=== PATIENT | female | born 2000 | race African-American/Black ===

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

== ENCOUNTER 2022-01-20 08:00 | Inpatient (IN) | payer OTHER ==
[2022-01-20] MEDS: ELECTROLYTE-148 SOLN 1,000 ML IV SCH ×2 (08:35→09:58)
[2022-01-20] MEDS ORDERED: CITRIC ACID/SODIUM CITRATE 30 ML UNIT-DOSE CUP PO ONE (08:51)
[2022-01-20] MEDS ORDERED: ELECTROLYTE-148 SOLN 1,000 ML IV SCH (09:00)
[2022-01-20 09:25] VITALS: BMI 39.4
[2022-01-20] MEDS ORDERED: morphine SULFATE/PF 1 MG/2 ML (2cc Syringe - QUVA) ONE (10:19)
[2022-01-20] MEDS ORDERED: ePHEDrine SULFATE 50 MG/1 ML AMPULE ONE (10:28)
[2022-01-20] MEDS ORDERED: SENNOSIDES/DOCUSATE COMBO (SENNA PLUS) TABLET (UD) PO PRN (11:08)
[2022-01-20] MEDS ORDERED: ACETAMINOPHEN 325 MG TABLET (FP) PO PRN (11:08)
[2022-01-20] MEDS ORDERED: IBUPROFEN 800 MG/8 ML IJ IVPB PRN (11:08)
[2022-01-20] MEDS ORDERED: METHYLERGONOVINE MALEATE 0.2 MG/1 ML AMP IM PRN (11:08)
[2022-01-20] MEDS ORDERED: OXYTOCIN 20 UNITS in 0.9% NS 20 UNIT/1,000 ML INFUS.BAG IV SCH (11:15)
[2022-01-20] MEDS: SIMETHICONE 80 MG TAB.CHEW (FP) PO PRN (22:02)
[2022-01-20] MEDS: FERROUS SO4 325 MG TABLET (FP) PO SCH (22:02)
[2022-01-20] MEDS ORDERED: oxyCODONE HCL 5 MG TABLET PO PRN (23:08)
[2022-01-21 08:05] LABS: BASO % 0.2 % (0-2.0); HEMATOCRIT 30.4 % (32.4-45.2); HEMOGLOBIN 10.4 GM/dL (10.7-15.3); LYMPH % 25.2 % (8-40); MCHC 34.3 g/dl (32.0-36.0); MEAN CELL VOLUME 84.6 fl (80-96); MEAN PLT VOLUME 8.7 fl (7.5-11.1); NEUT % 67.6 % (42.8-82.8); PLATELET COUNT 244 10^3/uL (134-434); RBC 3.59 M/mm3 (3.60-5.2); WHITE BLOOD COUNT 10.8 K/mm3 (4.0-10.0)
[2022-01-21] MEDS: FERROUS SO4 325 MG TABLET (FP) PO SCH ×2 (10:45→21:07)
[2022-01-21] MEDS: PRENATAL VITAMINS W/ FOLIC ACID TABLET (FP) PO SCH (10:45)
[2022-01-21] MEDS ORDERED: BISACODYL 10 MG SUPP.RECT RC PRN (11:08)
[2022-01-21] MEDS: SIMETHICONE 80 MG TAB.CHEW (FP) PO PRN ×2 (16:07→21:07)
[2022-01-21] MEDS: IBUPROFEN 600 MG TABLET (FP) PO PRN (21:07)
[2022-01-22] MEDS: IBUPROFEN 600 MG TABLET (FP) PO PRN ×3 (05:56→21:03)
[2022-01-22] MEDS: SIMETHICONE 80 MG TAB.CHEW (FP) PO PRN ×2 (05:56→21:03)
[2022-01-22] MEDS: FERROUS SO4 325 MG TABLET (FP) PO SCH ×2 (10:05→21:03)
[2022-01-22] MEDS: PRENATAL VITAMINS W/ FOLIC ACID TABLET (FP) PO SCH (10:05)
[2022-01-23] MEDS: IBUPROFEN 600 MG TABLET (FP) PO PRN (05:42)
[2022-01-23] MEDS: SIMETHICONE 80 MG TAB.CHEW (FP) PO PRN (05:42)
[2022-01-23] MEDS: FERROUS SO4 325 MG TABLET (FP) PO SCH (09:50)
[2022-01-23] MEDS: PRENATAL VITAMINS W/ FOLIC ACID TABLET (FP) PO SCH (09:50)
[2022-01-23 10:06] LABS: BASO % 0.2 % (0-2.0); EOS % 3.3 % (0-4.5); HEMATOCRIT 30.3 % (32.4-45.2); LYMPH % 16.4 % (8-40); MCH 28.5 pg (25.7-33.7); MCHC 33.1 g/dl (32.0-36.0); MEAN PLT VOLUME 8.6 fl (7.5-11.1); MONO % 3.5 % (3.8-10.2); NEUT % 76.6 % (42.8-82.8); PLATELET COUNT 251 10^3/uL (134-434); RBC 3.52 M/mm3 (3.60-5.2); RDW 14.5 % (11.6-15.6); WHITE BLOOD COUNT 12.4 K/mm3 (4.0-10.0)
[2022-01-23 11:23] VITALS: BP 129/67; PULSE 91; RESP 18; TEMP 97.8
== END 2022-01-23 13:05 | disposition home or self-care (01) | DRG 540 ==
LOC: JLDR 08:00 → J3W 13:30
PROVIDERS: ADMIT Obstetrics & Gynecology; ATTEND Obstetrics & Gynecology
PROC: 10D00Z1 Extraction of Products of Conception, Low, Open Approach (ICD-10-PCS; principal; 2022-01-20)
DX: O34.219 Maternal care for unspecified type scar from previous cesarean delivery (principal); Z3A.39 39 weeks gestation of pregnancy; Z37.0 Single live birth; U07.1 COVID-19
CPT/HCPCS: 36415; 85025; 88307-TC

== ENCOUNTER 2024-03-15 04:29 | Emergency (ER) | payer OTHER ==
[2024-03-15 04:33] VITALS: BMI 36.1
[2024-03-15] MEDS ORDERED: morphine SULFATE 4 MG/ML VIAL ONE (05:28)
[2024-03-15] MEDS: morphine SULFATE 4 MG/ML VIAL IVPUSH ONE (05:36)
[2024-03-15 06:01] LABS: POTASSIUM 3.4 mmol/L (3.5-5.1)
[2024-03-15 06:05] LABS: ALBUMIN 3.3 g/dl (3.4-5.0); BLOOD UREA NITROGEN 9.2 mg/dL (7-18)
[2024-03-15 06:07] LABS: CREATININE 0.8 mg/dL (0.55-1.3)
[2024-03-15 06:08] LABS: BILIRUBIN,TOTAL 0.4 mg/dL (0.2-1); TOT PROT 7.1 g/dl (6.4-8.2)
[2024-03-15 06:37] LABS: BASO % 0.2 % (0-2.0); EOS % 0.2 % (0-4.5); HEMOGLOBIN 7.8 GM/dL (10.7-15.3); MCH 22.9 pg (25.7-33.7); MCHC 32.3 g/dl (32.0-36.0); MEAN PLT VOLUME 8.1 fl (7.5-11.1); MONO % 3.1 % (3.8-10.2); NEUT % 84.5 % (42.8-82.8); PLATELET COUNT 421 10^3/uL (134-434); RBC 3.39 M/mm3 (3.60-5.2); RDW 17.8 % (11.6-15.6); WHITE BLOOD COUNT 18.3 K/mm3 (4.0-10.0)
[2024-03-15 08:47] LABS: BASO % 0.3 % (0-2.0); HEMATOCRIT 22.6 % (32.4-45.2); HEMOGLOBIN 7.2 GM/dL (10.7-15.3); LYMPH % 8.8 % (8-40); MCH 22.8 pg (25.7-33.7); MCHC 31.9 g/dl (32.0-36.0); MEAN CELL VOLUME 71.6 fl (80-96); MEAN PLT VOLUME 8.4 fl (7.5-11.1); MONO % 2.2 % (3.8-10.2); NEUT % 88.7 % (42.8-82.8); PLATELET COUNT 405 10^3/uL (134-434); RBC 3.15 M/mm3 (3.60-5.2); RDW 17.9 % (11.6-15.6); WHITE BLOOD COUNT 17.6 K/mm3 (4.0-10.0)
[2024-03-15] MEDS ORDERED: MISOPROSTOL 200 MCG TABLET NR ONE (09:50)
[2024-03-15] MEDS ORDERED: MORPHINE SULFATE 2 MG/ML SYRINGE ONE (10:30)
[2024-03-15] MEDS: morphine CARPU-JECT 2 MG/1 ML DISP.SYRIN IVPUSH ONE (10:36)
[2024-03-15] MEDS: MISOPROSTOL 200 MCG TABLET NR ONE (10:37)
[2024-03-15] MEDS ORDERED: ACETAMINOPHEN INJECTION 100 ML ONE (11:36)
[2024-03-15] MEDS: ACETAMINOPHEN 1000 MG/100 ML BAG IVPB ONE (11:49)
[2024-03-15] MEDS: METHYLERGONOVINE MALEATE 0.2 MG/1 ML AMP IM ONE (13:57)
[2024-03-15] MEDS ORDERED: ONDANSETRON 4 MG/2 ML VIAL ONE (14:02)
[2024-03-15] MEDS: ONDANSETRON 4 MG/2 ML VIAL IVPUSH ONE (14:04)
[2024-03-15 14:16] LABS: BASO % 0.3 % (0-2.0); EOS % 0.1 % (0-4.5); HEMATOCRIT 24.7 % (32.4-45.2); LYMPH % 16.9 % (8-40); MCH 24.8 pg (25.7-33.7); MCHC 32.3 g/dl (32.0-36.0); MEAN CELL VOLUME 76.9 fl (80-96); MEAN PLT VOLUME 8.1 fl (7.5-11.1); MONO % 3.9 % (3.8-10.2); NEUT % 78.8 % (42.8-82.8); PLATELET COUNT 374 10^3/uL (134-434); RBC 3.21 M/mm3 (3.60-5.2); RDW 21.3 % (11.6-15.6); WHITE BLOOD COUNT 17.5 K/mm3 (4.0-10.0)
[2024-03-15 15:24] LABS: ANISOCYTOSIS 3+; MACROCYTOSIS 0; OVALOCYTE 1+
[2024-03-15 15:59] VITALS: RESP 17; TEMP 97.7
[2024-03-15 16:18] VITALS: BP 124/83; PULSE 110
== END 2024-03-15 17:04 | disposition home or self-care (01) ==
LOC: JER 04:29
PROC: 3E033NZ Introduction of Analgesics, Hypnotics, Sedatives into Peripheral Vein, Percutaneous Approach (ICD-10-PCS; principal; 2024-03-15)
PROC: 3E033NZ Introduction of Analgesics, Hypnotics, Sedatives into Peripheral Vein, Percutaneous Approach (ICD-10-PCS; 2024-03-15)
PROC: 3E033NZ Introduction of Analgesics, Hypnotics, Sedatives into Peripheral Vein, Percutaneous Approach (ICD-10-PCS; 2024-03-15)
PROC: 3E033GC Introduction of Other Therapeutic Substance into Peripheral Vein, Percutaneous Approach (ICD-10-PCS; 2024-03-15)
PROC: 3E023GC Introduction of Other Therapeutic Substance into Muscle, Percutaneous Approach (ICD-10-PCS; 2024-03-15)
DX: O03.9 Complete or unspecified spontaneous abortion without complication (principal)
CPT/HCPCS: 36415; 36430; 76817-TC; 76830-TC; 80053; 84702; 85025; 86850; 86900; 86901; 86922; 88305-TC; 96372; 96374; 96375; 96376; 99284-25; J0131; P9058

== ENCOUNTER 2024-07-03 20:55 | Observation (INO) | payer OTHER ==
[2024-07-03 21:12] VITALS: RESP 18; BMI 33.9
[2024-07-03] MEDS: ACETAMINOPHEN 500 MG TABLET (FP) PO ONE (22:30)
[2024-07-03] MEDS ORDERED: ACETAMINOPHEN 500 MG TABLET (FP) ONE (22:38)
[2024-07-03] MEDS ORDERED: ACETAMINOPHEN INJECTION 100 ML ONE (23:17)
[2024-07-03 23:30] LABS: BASO % 0.5 % (0-2.0); EOS % 0.5 % (0-4.5); HEMATOCRIT 22.4 % (32.4-45.2); MCHC 28.4 g/dl (32.0-36.0); MEAN CELL VOLUME 58.9 fl (80-96); MEAN PLT VOLUME 8.2 fl (7.5-11.1); MONO % 8.1 % (3.8-10.2); NEUT % 62.9 % (42.8-82.8); PLATELET COUNT 460 10^3/uL (134-434); RDW 21.6 % (11.6-15.6); WHITE BLOOD COUNT 8.1 K/mm3 (4.0-10.0)
[2024-07-03 23:31] LABS: MCH 16.7 pg (25.7-33.7)
[2024-07-03 23:32] LABS: HEMOGLOBIN 6.4 GM/dL (10.7-15.3)
[2024-07-03] MEDS: ACETAMINOPHEN 1000 MG/100 ML BAG IVPB ONE (23:45)
[2024-07-03 23:56] LABS: ANISOCYTOSIS 2+; MACROCYTOSIS 0; OVALOCYTE 1+; TARGET CELLS 1+
[2024-07-04] MEDS ORDERED: MORPHINE SULFATE 2 MG/ML SYRINGE ONE ×2 (00:13→05:31)
[2024-07-04 00:30] LABS: HIV INTERPRETATION NEGATIVE (NEGATIVE)
[2024-07-04] MEDS: morphine SULFATE 4 MG/ML VIAL IVPUSH ONE (00:42)
[2024-07-04] MEDS ORDERED: ONDANSETRON 4 MG/2 ML VIAL ONE ×2 (00:45→05:31)
[2024-07-04] MEDS: ONDANSETRON 4 MG/2 ML VIAL IVPUSH ONE (00:49)
[2024-07-04] MEDS ORDERED: IBUPROFEN 600 MG TABLET (FP) PO PRN (04:08)
[2024-07-04] MEDS ORDERED: ONDANSETRON 4 MG/2 ML VIAL IVPUSH PRN (04:08)
[2024-07-04] MEDS: ONDANSETRON 4 MG/2 ML VIAL IVPUSH PRN (05:42)
[2024-07-04] MEDS: MORPHINE SULFATE 2 MG/ML SYRINGE IVPUSH PRN (05:42)
[2024-07-04] MEDS: KETOROLAC TROMETHAMINE 30 MG/1 ML VIAL IVPUSH ONE (05:59)
[2024-07-04 06:31] LABS: HEMATOCRIT 20.3 % (32.4-45.2); HEMOGLOBIN 5.8 GM/dL (10.7-15.3); MCHC 28.4 g/dl (32.0-36.0); MEAN CELL VOLUME 59.9 fl (80-96); MEAN PLT VOLUME 8.4 fl (7.5-11.1); PLATELET COUNT 409 10^3/uL (134-434); RBC 3.39 M/mm3 (3.60-5.2); RDW 21.4 % (11.6-15.6); WHITE BLOOD COUNT 7.9 K/mm3 (4.0-10.0)
[2024-07-04] MEDS ORDERED: NALOXONE HCL 0.4 MG/ML VIAL IVPUSH PRN (06:34)
[2024-07-04] MEDS ORDERED: HYDROmorphone HCL CARPU-JECT 2 MG/1 ML DISP.SYRIN IVPB PRN (06:34)
[2024-07-04 06:48] LABS: POTASSIUM 3.7 mmol/L (3.5-5.1)
[2024-07-04 06:51] LABS: ALBUMIN 3.9 g/dl (3.4-5.0); BLOOD UREA NITROGEN 9.6 mg/dL (7-18); CALCIUM 9.1 mg/dL (8.5-10.1)
[2024-07-04 06:54] LABS: CREATININE 0.6 mg/dL (0.55-1.3)
[2024-07-04 06:56] LABS: BILIRUBIN,TOTAL 0.7 mg/dL (0.2-1)
[2024-07-04] MEDS: KETOROLAC TROMETHAMINE 15 MG/ML VIAL IVPUSH PRN (09:03)
[2024-07-04 14:58] VITALS: TEMP 97.9
[2024-07-04 15:26] VITALS: BP 136/84; PULSE 63
[2024-07-04] MEDS ORDERED: FERROUS SO4 325 MG TABLET (FP) PO SCH (17:30)
[2024-07-04] MEDS ORDERED: DOCUSATE SODIUM 100 MG CAPSULE (FP) PO SCH (22:00)
== END 2024-07-04 17:32 | disposition home or self-care (01) ==
LOC: JER 20:55 → JERBED 07-04 02:32 → J7W 07-04 07:03
PROVIDERS: ADMIT Student in an Organized Health Care Education/Training Program; ATTEND Nurse Practitioner Acute Care
PROC: 30233N1 Transfusion of Nonautologous Red Blood Cells into Peripheral Vein, Percutaneous Approach (ICD-10-PCS; principal; 2024-07-04)
PROC: 3E033NZ Introduction of Analgesics, Hypnotics, Sedatives into Peripheral Vein, Percutaneous Approach (ICD-10-PCS; 2024-07-04)
PROC: 3E0333Z Introduction of Anti-inflammatory into Peripheral Vein, Percutaneous Approach (ICD-10-PCS; 2024-07-04)
PROC: 3E033GC Introduction of Other Therapeutic Substance into Peripheral Vein, Percutaneous Approach (ICD-10-PCS; 2024-07-04)
DX: O03.9 Complete or unspecified spontaneous abortion without complication (principal); D50.9 Iron deficiency anemia, unspecified; E66.811 Obesity, class 1; Z91.013 Allergy to seafood; Z91.010 Allergy to peanuts
CPT/HCPCS: 36415; 36430; 76817-TC; 80053; 82728; 83540; 83550; 84702; 84703; 85025; 85027; 86803; 86850; 86900; 86901; 86922; 87389; 87491; 87591; 96374; 96375; 96376; 99285-25; G0378; J0131; P9038; P9058